=== PATIENT | male | born 1950 | race Caucasian/White ===

== ENCOUNTER → 2023-09-20 07:56 | Outpatient (REF) | payer MEDICARE, SELFPAY ==
[2023-09-20 09:45] LABS: Calcium 9.5 mg/dl (8.4-10.2); Iron 85 ug/dl (49-181); Vitamin D, 25-OH*** 36.9 ng/mL (30-80)
[2023-09-20 09:56] LABS: Percent Saturation 26 % (20-50); Total Iron Binding Capacity 319 ug/dl (261-462)
[2023-09-20 09:59] LABS: TSH Reflex To Free T4 0.04 uIU/ml (0.47-4.68)
[2023-09-23 10:39] LABS: Intact PTH 158.8 pg/ml (13.6-85.8)
== END ==
LOC: HWLAB 07:56
PROVIDERS: ATTENDING PHYSICIAN Specialist; FAMILY PHYSICIAN Family Medicine; REFERRING PHYSICIAN Internal Medicine
DX: N18.31 Chronic kidney disease, stage 3a (principal); E61.1 Iron deficiency; Z86.39 Personal history of other endocrine, nutritional and metabolic disease
CPT/HCPCS: 36415; 82306; 83540; 83550; 83970; 84439; 84443

== ENCOUNTER → 2023-09-26 09:31 | Outpatient (REF) | payer MEDICARE, SELFPAY | LOC: HWRAD 09:31 | PROVIDERS: ATTENDING PHYSICIAN Internal Medicine; FAMILY PHYSICIAN Family Medicine | DX: M25.512 Pain in left shoulder (principal) | CPT/HCPCS: 73030 ==

== ENCOUNTER → 2023-11-01 07:07 | Outpatient (REF) | payer MEDICARE, SELFPAY | LOC: HWRAD 07:07 | PROVIDERS: ATTENDING PHYSICIAN Specialist; FAMILY PHYSICIAN Family Medicine | DX: M25.512 Pain in left shoulder (principal) | CPT/HCPCS: 73200 ==

== ENCOUNTER → 2023-12-19 09:11 | Outpatient (REF) | payer MEDICARE, SELFPAY | LOC: RCS 09:11 | PROVIDERS: ATTENDING PHYSICIAN Internal Medicine Cardiovascular Disease; FAMILY PHYSICIAN Family Medicine | DX: I35.0 Nonrheumatic aortic (valve) stenosis (principal) | CPT/HCPCS: 93306 ==

== ENCOUNTER → 2024-01-19 08:19 | Outpatient (REF) | payer MEDICARE, SELFPAY ==
[2024-01-19 12:48] LABS: Urine Albumin Trace (Neg - Trace); Urine Bilirubin Negative (Negative); Urine Character Clear (Clear); Urine Color Straw; Urine Glucose 3+ (Negative); Urine Ketone Negative (Negative); Urine Leukocyte Negative (Negative); Urine Nitrite Negative (Negative); Urine Occult Blood Negative (Negative); Urine Specific Gravity 1.015 (<1.030); Urine Urobilinogen Negative (Neg - 1+)
[2024-01-19 13:35] LABS: AST (SGOT) 38 U/L (17-59); Albumin 4.4 g/dl (3.5-5.0); Blood Urea Nitrogen 33 mg/dl (9-20); Calcium 9.6 mg/dl (8.4-10.2); Carbon Dioxide 23 mmol/L (22-30); Glucose 123 mg/dl (70-99); Potassium 4.4 mmol/L (3.5-5.1); Total Bilirubin 0.6 mg/dl (0.2-1.3); Total Protein 7.7 g/dl (6.3-8.2); eGFR 52.74
[2024-01-19 13:41] LABS: C-Reactive Protein < 5.00 mg/L (0.0-10.00)
[2024-01-19 13:43] LABS: ALT (SGPT) 23 U/L (0-50); Alkaline Phosphatase 75 U/L (38-126); Chloride 104 mmol/L (98-107); Sodium 139 mmol/L (135-145)
[2024-01-19 13:49] LABS: Protein/creatinine Ratio 0.9; Urine Protein 55 mg/dl
[2024-01-19 14:12] LABS: TSH 0.21 uIU/ml (0.47-4.68)
[2024-01-19 14:15] LABS: Microalbumin, Random Urine 23.3 mg/dl (0.6-1.7)
[2024-01-19 14:24] LABS: Glycohemoglobin (HgbA1c) 7.3 % (4.0-5.6)
[2024-01-19 14:42] LABS: Erythrocyte Sed Rate 12 mm/hour (0-20)
[2024-01-22 00:06] LABS: Complement C3 88 mg/dl (88-165)
== END ==
LOC: HWLAB 08:19
PROVIDERS: ATTENDING PHYSICIAN Internal Medicine; FAMILY PHYSICIAN Family Medicine; REFERRING PHYSICIAN Specialist
DX: E11.69 Type 2 diabetes mellitus with other specified complication (principal); E03.9 Hypothyroidism, unspecified; M32.9 Systemic lupus erythematosus, unspecified; M35.00 Sjogren syndrome, unspecified; Z51.81 Encounter for therapeutic drug level monitoring; R97.20 Elevated prostate specific antigen [PSA]
CPT/HCPCS: 36415; 80053; 81003; 82043; 82570; 83036; 84153; 84156; 84443; 85652; 86140; 86160; 86225

== ENCOUNTER → 2024-03-07 08:24 | Outpatient (REF) | payer MEDICARE, SELFPAY ==
[2024-03-07 11:44] LABS: TSH Reflex To Free T4 0.48 uIU/ml (0.47-4.68)
== END ==
LOC: HWLAB 08:24
PROVIDERS: ATTENDING PHYSICIAN Specialist; FAMILY PHYSICIAN Family Medicine
DX: R79.89 Other specified abnormal findings of blood chemistry (principal)
CPT/HCPCS: 36415; 84443

== ENCOUNTER → 2024-03-19 13:22 | Outpatient (REF) | payer MEDICARE, SELFPAY | LOC: MRI 13:22 | PROVIDERS: ATTENDING PHYSICIAN Specialist; FAMILY PHYSICIAN Family Medicine | DX: R97.20 Elevated prostate specific antigen [PSA] (principal) | CPT/HCPCS: 72197; A9575 ==

== ENCOUNTER → 2024-04-24 08:27 | Outpatient (REF) | payer MEDICARE, SELFPAY ==
[2024-04-24 09:58] LABS: % Basophils 0.7 % (0-2); % Eosinophils 5.3 % (0-6); % Immature Granulocytes 0.3 % (0-0.5); % Lymphocytes 27.7 % (20.5-51.1); % Monocytes 14.5 % (1.7-9.3); % Neutrophils 51.5 % (42.2-75.2); Absolute Eosinophils 0.2 10^3/uL (0-0.7); Absolute Lymphocytes 0.8 10^3/uL (1.2-3.4); Absolute Monocytes 0.4 10^3/uL (0.1-0.6); Absolute Neutrophils 1.6 10^3/uL (1.4-6.5); Hematocrit 41.1 % (39.0-52.0); Hemoglobin 13.7 g/dL (13.0-18.0); Mean Corp Hgb Conc. 33.3 g/dL (33.0-37.0); Mean Corpuscular Hgb 29.6 pg (27.0-31.0); Mean Corpuscular Volume 88.8 fL (80.0-94.0); Mean Platelet Volume 9.3 fL (7.4-10.4); Nucleated Red Blood Cells % 0 % (-); Platelet Count 134 10^3/uL (130-400); Red Blood Cell Count 4.63 10^6/uL (4.70-6.10)
[2024-04-24 11:14] LABS: Urine Albumin 1+ (Neg - Trace); Urine Bilirubin Negative (Negative); Urine Character Clear (Clear); Urine Color Yellow; Urine Glucose 3+ (Negative); Urine Ketone Negative (Negative); Urine Leukocyte Negative (Negative); Urine Nitrite Negative (Negative); Urine Occult Blood 4+ (Negative); Urine Urobilinogen Negative (Neg - 1+)
[2024-04-24 11:25] LABS: Erythrocyte Sed Rate 15 mm/hour (0-20)
[2024-04-24 11:38] LABS: Urine Bacteria Few (Negative); Urine Hyaline Cast 0-2 /LPF (0-2); Urine Mucus Few; Urine Squamous Cell 0-2 /LPF (Few); Urine White Cell 0-2 /HPF (0-5)
[2024-04-24 12:15] LABS: Glycohemoglobin (HgbA1c) 7.1 % (4.0-5.6)
[2024-04-24 12:22] LABS: ALT (SGPT) 23 U/L (0-50); AST (SGOT) 35 U/L (17-59); Albumin 4.6 g/dl (3.5-5.0); Alkaline Phosphatase 76 U/L (38-126); Blood Urea Nitrogen 33 mg/dl (9-20); Calcium 9.5 mg/dl (8.4-10.2); Carbon Dioxide 24 mmol/L (22-30); Chloride 103 mmol/L (98-107); Glucose 114 mg/dl (70-99); HDL Cholesterol 51 mg/dl; LDL Cholesterol, Calculated 59 mg/dl; Potassium 4.8 mmol/L (3.5-5.1); Sodium 141 mmol/L (135-145); Total Bilirubin 0.5 mg/dl (0.2-1.3); Total Cholesterol 126 mg/dl (50-199); Total Protein 7.7 g/dl (6.3-8.2); Triglyceride 81 mg/dl (10-149); Very Low Density Lipoprotein 16 mg/dl (0-30); eGFR 48.55
[2024-04-24 12:57] LABS: C-Reactive Protein < 5.00 mg/L (0.0-10.00)
[2024-04-24 14:06] LABS: Protein/creatinine Ratio 0.6; Urine Protein 100 mg/dl
[2024-04-25 02:36] LABS: Complement C3 84 mg/dl (88-165)
[2024-04-26 01:49] LABS: ds-DNA Ab, IgG Reflex To Titer 15 IU (0-24)
== END ==
LOC: HWLAB 08:27
PROVIDERS: ATTENDING PHYSICIAN Internal Medicine; FAMILY PHYSICIAN Family Medicine
DX: M32.9 Systemic lupus erythematosus, unspecified (principal); M35.00 Sjogren syndrome, unspecified; E78.5 Hyperlipidemia, unspecified; E11.59 Type 2 diabetes mellitus with other circulatory complications
CPT/HCPCS: 36415; 80053; 80061; 81003; 81015; 82570; 83036; 84156; 85025; 85652; 86140; 86160; 86225

== ENCOUNTER → 2024-06-17 10:07 | Outpatient (REF) | payer MEDICARE, SELFPAY ==
[2024-06-17 12:15] LABS: ALT (SGPT) 25 U/L (0-50); AST (SGOT) 36 U/L (17-59); Albumin 4.2 g/dl (3.5-5.0); Alkaline Phosphatase 63 U/L (38-126); Blood Urea Nitrogen 36 mg/dl (9-20); Calcium 9.5 mg/dl (8.4-10.2); Carbon Dioxide 27 mmol/L (22-30); Chloride 100 mmol/L (98-107); Glucose 121 mg/dl (70-99); HDL Cholesterol 75 mg/dl; LDL Cholesterol, Calculated 92 mg/dl; Potassium 4.5 mmol/L (3.5-5.1); Sodium 138 mmol/L (135-145); Total Bilirubin 0.7 mg/dl (0.2-1.3); Total Cholesterol 181 mg/dl (50-199); Total Protein 7.5 g/dl (6.3-8.2); Triglyceride 72 mg/dl (10-149); Very Low Density Lipoprotein 14 mg/dl (0-30); eGFR 52.74
== END ==
LOC: HWLAB 10:07
PROVIDERS: ATTENDING PHYSICIAN Internal Medicine Cardiovascular Disease; FAMILY PHYSICIAN Family Medicine
DX: I25.10 Atherosclerotic heart disease of native coronary artery without angina pectoris (principal)
CPT/HCPCS: 36415; 80053; 80061

== ENCOUNTER → 2024-09-09 08:22 | Outpatient (REF) | payer MEDICARE, SELFPAY ==
[2024-09-09 10:20] LABS: ALT (SGPT) 18 U/L (0-50); AST (SGOT) 31 U/L (17-59); Albumin 3.9 g/dl (3.5-5.0); Alkaline Phosphatase 62 U/L (38-126); Blood Urea Nitrogen 31 mg/dl (9-20); Calcium 9.1 mg/dl (8.4-10.2); Carbon Dioxide 28 mmol/L (22-30); Chloride 100 mmol/L (98-107); Glucose 122 mg/dl (70-99); HDL Cholesterol 63 mg/dl; LDL Cholesterol, Calculated 61 mg/dl; Sodium 137 mmol/L (135-145); Total Bilirubin 0.4 mg/dl (0.2-1.3); Total Cholesterol 142 mg/dl (50-199); Triglyceride 94 mg/dl (10-149); Very Low Density Lipoprotein 18 mg/dl (0-30); eGFR 52.41
[2024-09-09 10:22] LABS: Urine Albumin 1+ (Neg - Trace); Urine Bilirubin Negative (Negative); Urine Character Clear (Clear); Urine Color Yellow; Urine Glucose 3+ (Negative); Urine Ketone Negative (Negative); Urine Leukocyte Negative (Negative); Urine Nitrite Negative (Negative); Urine Occult Blood Negative (Negative); Urine Specific Gravity 1.015 (<1.030); Urine Urobilinogen Negative (Neg - 1+)
[2024-09-09 10:24] LABS: C-Reactive Protein < 5.00 mg/L (0.0-10.00)
[2024-09-09 10:32] LABS: Urine Mucus Few; Urine Red Blood Cell 0-2 /HPF (0-2); Urine Squamous Cell 0-2 /LPF (Few); Urine White Cell 0-2 /HPF (0-5)
[2024-09-09 10:33] LABS: Erythrocyte Sed Rate 19 mm/hour (0-20)
[2024-09-09 10:46] LABS: % Eosinophils 11.7 % (0-6); % Immature Granulocytes 0.5 % (0-0.5); % Lymphocytes 10.7 % (20.5-51.1); % Monocytes 18.4 % (1.7-9.3); % Neutrophils 57.7 % (42.2-75.2); Absolute Eosinophils 0.2 10^3/uL (0-0.7); Absolute Lymphocytes 0.2 10^3/uL (1.2-3.4); Absolute Monocytes 0.4 10^3/uL (0.1-0.6); Absolute Neutrophils 1.2 10^3/uL (1.4-6.5); Hematocrit 37.9 % (39.0-52.0); Hemoglobin 12.2 g/dL (13.0-18.0); Mean Corp Hgb Conc. 32.2 g/dL (33.0-37.0); Mean Corpuscular Volume 90.2 fL (80.0-94.0); Mean Platelet Volume 8.4 fL (7.4-10.4); Nucleated Red Blood Cells % 0 % (-); Platelet Count 98 10^3/uL (130-400); Red Cell Dist. Width 13.4 % (11.5-14.5); White Blood Cell Count 2.1 10^3/uL (4.8-10.8)
[2024-09-09 10:54] LABS: TSH 0.42 uIU/ml (0.47-4.68)
[2024-09-09 11:01] LABS: Urine Protein 117 mg/dl
[2024-09-09 14:27] LABS: Microalbumin, Random Urine > 57.0 mg/dl (0.6-1.7)
[2024-09-09 18:42] LABS: Complement C3 102 mg/dl (88-165)
[2024-09-11 02:02] LABS: ds-DNA Ab, IgG Reflex To Titer 6 IU (0-24)
== END ==
LOC: HWLAB 08:22
PROVIDERS: ATTENDING PHYSICIAN Internal Medicine; FAMILY PHYSICIAN Family Medicine
DX: E03.9 Hypothyroidism, unspecified (principal); E11.69 Type 2 diabetes mellitus with other specified complication; E78.5 Hyperlipidemia, unspecified
CPT/HCPCS: 36415; 80053; 80061; 81003; 81015; 82043; 82570; 83036; 84156; 84443; 85025; 85652; 86140; 86160; 86225

== ENCOUNTER → 2024-09-24 11:02 | Outpatient (REF) | payer MEDICARE, SELFPAY | LOC: HWRAD 11:02 | PROVIDERS: ATTENDING PHYSICIAN Family Medicine; REFERRING PHYSICIAN Otolaryngology | DX: J32.9 Chronic sinusitis, unspecified (principal) | CPT/HCPCS: 70486 ==

== ENCOUNTER → 2024-10-07 09:02 | Outpatient (REF) | payer MEDICARE, SELFPAY ==
[2024-10-07 12:08] LABS: % Basophils 0.4 % (0-2); % Eosinophils 7.3 % (0-6); % Immature Granulocytes 0.4 % (0-0.5); % Lymphocytes 13.5 % (20.5-51.1); % Neutrophils 63.4 % (42.2-75.2); Absolute Eosinophils 0.2 10^3/uL (0-0.7); Absolute Lymphocytes 0.4 10^3/uL (1.2-3.4); Absolute Monocytes 0.4 10^3/uL (0.1-0.6); Absolute Neutrophils 1.7 10^3/uL (1.4-6.5); Hematocrit 36.7 % (39.0-52.0); Hemoglobin 12.2 g/dL (13.0-18.0); Mean Corp Hgb Conc. 33.2 g/dL (33.0-37.0); Mean Corpuscular Hgb 30.1 pg (27.0-31.0); Mean Corpuscular Volume 90.6 fL (80.0-94.0); Nucleated Red Blood Cells % 0 % (-); Platelet Count 128 10^3/uL (130-400); Red Blood Cell Count 4.05 10^6/uL (4.70-6.10); Red Cell Dist. Width 14.1 % (11.5-14.5); White Blood Cell Count 2.7 10^3/uL (4.8-10.8)
[2024-10-07 12:42] LABS: ALT (SGPT) 32 U/L (0-50); AST (SGOT) 35 U/L (17-59); Albumin 4.1 g/dl (3.5-5.0); Alkaline Phosphatase 67 U/L (38-126); Blood Urea Nitrogen 35 mg/dl (9-20); Calcium 9.5 mg/dl (8.4-10.2); Carbon Dioxide 30 mmol/L (22-30); Chloride 102 mmol/L (98-107); Glucose 142 mg/dl (70-99); Potassium 4.3 mmol/L (3.5-5.1); Sodium 138 mmol/L (135-145); Total Bilirubin 0.5 mg/dl (0.2-1.3); Total Protein 7.3 g/dl (6.3-8.2); eGFR 52.41
== END ==
LOC: HWLAB 09:02
PROVIDERS: ATTENDING PHYSICIAN Internal Medicine; FAMILY PHYSICIAN Family Medicine
DX: M32.9 Systemic lupus erythematosus, unspecified (principal)
CPT/HCPCS: 36415; 80053; 85025

== ENCOUNTER 2024-10-30 12:31 | Emergency (ER) | payer MEDICARE, SELFPAY ==
[2024-10-30 12:33] VITALS: BMI 22.2
[2024-10-30 12:34] VITALS: BP 155/69
[2024-10-30 12:55] LABS: % Basophils 0.2 % (0-2); % Eosinophils 12.4 % (0-6); % Immature Granulocytes 0.5 % (0-0.5); % Lymphocytes 4.6 % (20.5-51.1); % Monocytes 6.5 % (1.7-9.3); % Neutrophils 75.8 % (42.2-75.2); Absolute Eosinophils 0.8 10^3/uL (0-0.7); Absolute Lymphocytes 0.3 10^3/uL (1.2-3.4); Absolute Monocytes 0.4 10^3/uL (0.1-0.6); Absolute Neutrophils 4.8 10^3/uL (1.4-6.5); Hematocrit 34.3 % (39.0-52.0); Hemoglobin 11.5 g/dL (13.0-18.0); Mean Corp Hgb Conc. 33.5 g/dL (33.0-37.0); Mean Corpuscular Hgb 30.5 pg (27.0-31.0); Nucleated Red Blood Cells % 0 % (-); Platelet Count 98 10^3/uL (130-400); Red Blood Cell Count 3.77 10^6/uL (4.70-6.10); Red Cell Dist. Width 13.7 % (11.5-14.5); White Blood Cell Count 6.3 10^3/uL (4.8-10.8)
[2024-10-30 13:00] VITALS: BP 145/69
[2024-10-30 13:00] LABS: ALT (SGPT) 36 U/L (0-50); AST (SGOT) 35 U/L (17-59); Alkaline Phosphatase 76 U/L (38-126); Blood Urea Nitrogen 39 mg/dl (9-20); Calcium 9.1 mg/dl (8.4-10.2); Carbon Dioxide 26 mmol/L (22-30); Chloride 102 mmol/L (98-107); Estimated Creatinine Clearance 47 ml/min; Glucose 151 mg/dl (70-99); Potassium 4.4 mmol/L (3.5-5.1); Sodium 137 mmol/L (135-145); Total Bilirubin 0.7 mg/dl (0.2-1.3); Total Protein 6.9 g/dl (6.3-8.2); eGFR 44.65
[2024-10-30 13:10] LABS: Troponin I 0.015 ng/ml
--- NOTE | 2024-10-30 13:10 | ED.GENMED ---
History of Present Illness
General
Chief Complaint: Heart Rate Problem
Source: patient, records and spouse
Exam Limitations: none
Time Seen by Provider: 10/30/24 12:40
Nursing documentation reviewed up to this point in time: agreed with
History of Present Illness
History of Present Illness:
74-year-old male with a past medical history of hypertension, hyperlipidemia, CAD status post stents, CABG, CHF, cardiomyopathy, pacemaker, aortic stenosis, prostate cancer status post radiation therapy (finished about 6 weeks ago) and currently on
Lupron. He presents to the emergency room with his today for evaluation of lightheadedness on exertion. Patient reports symptoms have been ongoing for about a month but generally mild until the past few days. He says that today he had severe
symptoms even with very light exertion�he says that he was washing some close in the sink and felt so lightheaded that he was about to pass out. He says that he had 3 such episodes today. He had some associated mild hypotension. He says he had a
salty breakfast and some fluids but this did not seem to help and so he called EMS to bring him to the hospital to be evaluated. He has not had any chest pain. He says he has some mild shortness of breath with his symptoms. Has not noticed any
swelling or pain in the legs. Has not had any nausea or vomiting; has generally had normal bowel movements over the past month but last night did have some loose stools. He denies any abdominal or flank pain. He denies any headache. He denies
any other complaints. He has been following with Dr. Aden for cardiology care; he is supposed to see Dr. Frausto since Dr. Aden's [facility] living but has not yet seen him in the office.
Past History
Past History
ED Past Medical History: CAD, CHF, HTN, Hypercholesterolemia, NIDDM, Other (Pernicious anemia) and Other (DVT/PE)
ED Past Surgical History: Cardiac (CABG) and Other (Recent three-level lumbar laminectomy)
Social History
Tobacco: Non-smoker
Alcohol: Occasional
Drug: None
Personal:
Living: with family
Employment: Retired
Family History
Family History: Other
Review of Systems
Review of Systems
All Other Systems: ROS reviewed and negative except as documented in HPI and ROS
Constitutional: Denies fever
Respiratory: Reports trouble breathing; Denies cough
Cardiac: Reports syncope (Presyncope); Denies chest pain, diaphoresis or palpitations
ABD/GI: Reports diarrhea (X 1 episode last night); Denies abdominal pain, nausea or vomiting
: Denies flank pain
Musculoskeletal: Denies neck pain or back pain
Neurological: Reports dizzy; Denies headache
Phy Exam
Physical Exam
Physical Exam:
General: Awake, alert, oriented x3; no acute distress
Head: Normocephalic, atraumatic
Eyes: Conjunctiva normal, sclera anicteric
Throat: Airway intact, handling secretions
Neck: Trachea midline, supple without meningismus
Lungs: Clear to auscultation bilaterally, no wheezing, rales, rhonchi
Heart: Regular rate and rhythm, loud systolic murmur
Abd: Soft, non distended, nontender with no masses
Neuro: No gross deficit
Skin: no rash
Extremities: No edema in extremities, equal pulses in all extremities
Scores
Heart Failure Risk
Heart Failure Risk Score: Not Applicable
Heart Score for Chest Pain Patients
STEMI patient?: Not applicable
Withdrawal Assessment of Alcohol
Withdrawal Assessment Completed?: Not applicable
Course
Orders/Labs/Results
Orders:
Orders
10/30/24 12:32
Electrocardiogram (*1) Urgent
Reason for Study: Syncope
10/30/24 12:33
EKG- Treatment ONCE
10/30/24 12:41
CMP [Comprehensive Metabolic Panel] Urgent
Complete Blood Count/With Diff Urgent
Troponin I Urgent
10/30/24 12:42
Interrogate Pacemaker- Treatment ONCE
10/30/24 13:10
CARDIOLOGY CONSULT Urgent
Consulting Provider: Rosalinda Wong
Was physician already notified: Yes
10/30/24 14:54
Echo 2D MMode Color/Doppler Routine
Reason for Study: , light-headedness
Orthostatic Vital Signs As Directed
Orthostatic VS Frequency: Now
Abnormal Lab Results
10/30/24
12:41
RBC 3.77 L 10^6/uL
(4.70-6.10)
Hgb 11.5 L g/dL
(13.0-18.0)
Hct 34.3 L %
(39.0-52.0)
Plt Count 98 L 10^3/uL
(130-400)
Absolute Lymphs (auto) 0.3 L 10^3/uL
(1.2-3.4)
Absolute Eos (auto) 0.8 H 10^3/uL
(0-0.7)
Neutrophils % 75.8 H %
(42.2-75.2)
Lymphocytes % 4.6 L %
(20.5-51.1)
Eosinophils % 12.4 H %
(0-6)
BUN 39 H mg/dl
(9-20)
Creatinine 1.6 H mg/dL
(0.7-1.3)
Glucose 151 H mg/dl
(70-99)
10/30/24 12:41
10/30/24 12:41
Vital Signs
Initial and Last Documented VS:
Initial Vital Signs
Pulse Resp
77 27
10/30/24 12:33 10/30/24 12:33
Last Documented Vital Signs
Temp Pulse Resp BP Pulse Ox
37.2 C 60 21 109/41 97
10/30/24 12:39 10/30/24 16:30 10/30/24 16:30 10/30/24 16:00 10/30/24 16:30
MDM/Problems Addressed
Differential Diagnosis Includes:
Anemia, valvular disease, dysrhythmia, dehydration, vasovagal, orthostasis
MDM/Problems Addressed:
74-year-old male presents for evaluation of lightheadedness with exertion over the past month worse over the past few days especially today. He did have some associated hypotension today. He feels well here in the while resting in bed. His blood
pressure is actually mildly elevated here in the ER. Rest of his vitals are normal. Physical exam as above�notably has loud systolic murmur known aortic stenosis. He had lab work sent in triage including CBC which shows marginal anemia 11.5
unlikely acutely of clinical significance. His CMP shows essentially stable CKD with creatinine of 1.6. EKG shows paced rhythm. Will interrogate device. Case discussed with cardiology for assessment with concern for worsening valvular disease.
Discussed with cardiology�echocardiogram reviewed and appears to show worsening aortic stenosis. Likely this is the cause of his symptoms. Cardiology to discontinue Entresto. Stable for discharge and they will follow-up with him in an expedited
fashion for outpatient cath. Patient comfortable with this. All questions answered.
Chronic conditions affecting care:
Aortic stenosis, CAD/CHF
*Pulse Oximetry
Patient hypoxic: no
*EKG
Interpreted by ED Provider?: Yes
Heart Rate: 65
Rate: normal
Rhythm: av sequential
*Critical Care Note
Total Time (30-74mins, 75-104mins- exclusive of procedures): Not Applicable
Data Reviewed
Review of Other/Old Records Reveals: Labs and Records
Source: patient, records, spouse and ambulance crew
Patient Management
Discussion with other providers: Sat Act Instructor (Discussed with cardiology)
ED Attending Note
-
Portions of this chart may have been created with voice recognition software.� Occasional wrong word or��sound alike� substitutions may have occurred due to the inherent limitations of voice recognition software.
Discharge Plan
Departure
Patient Disposition: Home (Routine Discharge)
Date of Disposition: 10/30/24
Time of Disposition: 17:19
Patient with high blood pressure during this ER visit?: Yes
Discharge Problem:
Aortic stenosis, Lightheadedness
Instructions: Aortic Stenosis, Adult (DC)
Prescriptions:
No Action
atorvastatin 40 MG tablet
40 mg PO QPM
cyanocobalamin (vitamin B-12) 1,000 MCG/1 ML solution
1,000 mcg IM SA
aspirin 81 MG tablet,delayed release (DR/EC)
81 mg PO QPM
levothyroxine 200 MCG tablet
200 mcg PO DAILY
Janumet 1 EACH tablet
1 tab PO BID@0800,1700
ascorbic acid (vitamin C) [Vitamin C] 500 MG tablet
1,500 mg PO DAILY
trazodone 50 MG tablet
100 mg PO HS
azelastine-fluticasone 23 GM spray,non-aerosol
1 spray intranasal BID
terazosin 5 MG capsule
10 mg PO NOON Qty: 0 0RF
prednisone 5 mg Tablet
5 mg PO DAILY
hydroxychloroquine 200 mg Tablet
200 mg PO BID
carvedilol 25 mg Tablet
25 mg PO BID
hydralazine 50 MG tablet
100 mg PO TID
folic acid 1 mg Tablet
3 mg PO DAILY
oxycodone 10 mg Tablet
10 mg PO Q8H PRN (Reason: pain)
furosemide [Lasix] 40 mg tablet
40 mg PO DAILY Qty: 90 5RF
Referrals:
Edu Bentley DO [Family Provider] -
Ed Purcell MD [Active] - Call in 1-3 days for appt (Follow up with cardiology as instructed for outpatient follow up of your valve issue.)
Activity Restrictions/Additional Instructions:
Thank you for visiting the Emergency Department at [facility].
1. Please schedule a follow up appointment as directed. Call first thing tomorrow morning to make an appointment.
2. If indicated, please take your medications as instructed and indicated on discharge paperwork.
3. If any of your symptoms do not improve, or persist, or become more severe within 6-12 hours, please return to the emergency department for further care.
4. Please return to the emergency department if you develop a headache, neck pain/stiffness, fever greater than 100.4F, chest pain, shortness of breath, persistent nausea, vomiting, slurred speech, difficulty walking, numbness/tingling, weakness,
signs of infection or any other symptoms that are worrisome to you.
Please call [phone] if you have any questions.
Interventions
Interventions:
*Risk Screen - Suicide Last Done: 10/30/24 12:33
*General Assessment Last Done: 10/30/24 12:33
*Neglect/Abuse Screening Last Done: 10/30/24 12:33
*ED COVID-19 Vaccine History Last Done: 10/30/24 12:33
ED- Cardiac Assessment Last Done: 10/30/24 13:03
ED- Pulmonary Assessment Last Done: 10/30/24 13:03
Discharge Date and Time
Print Language: CITIZEN OF [place]
--- NOTE | 2024-10-30 13:31 | CON.CAR ---
Addendum entered and electronically signed by Rosalinda Wong MD 10/30/24 15:43:
I saw and examined the patient.
The ANGLE SHEAR OPERATOR's note was reviewed and I agree with the note.
Comment: 74 y/o male with ICM EF 40%, complex CAD with hx CABG and stenting, Sjogren's, hypertension, dyslipidemia, symptomatic bradycardia s/p PPM, moderate , prostate cancer s/ radiation who is here for evaluation of light-headedness. He has
been undergoing radiation and Lupron for newly diagnosed prostate cancer with a Dalton score of 9 at 10 who for the last month or so has been having episodes of lightheadedness. It was most severe today, he was lightheaded but still got into a hot
shower, coming out of the shower this worsened. He checked his blood pressure it was systolic in the 80s. He sat down, began to feel a bit better ate breakfast blood pressure jasper to 90s. However he then began to have ongoing symptoms and sought
emergent care. No true syncope. He relates to me that over the last month his symptoms mostly occur while he is walking around and exerting himself. In the past GDMT has been limited by low blood pressure. On exam, he is well-appearing in no
apparent distress. Lungs were clear to auscultation bilaterally when breathing through his nose, initially there were transmitted upper airway sounds, he has a regular rate and rhythm there is a 3 out of 6 crescendo decrescendo murmur in the right
upper sternal border rating to the carotids and apex. I do think there is a A2 closing sounds still. Abdomen is soft nontender extremities were warm well-perfused. EKG showed AV pacing with a PVC. Laboratory show mild anemia that seems chronic,
creatinine of 1.6 baseline appears to be 1.4-1.6. Troponin is 0.015. It was my pleasure to see Mr. García for his episode of lightheadedness. Most concerning is that the symptom is exertional time. We did interrogate his device and no arrhythmias
were identified. He does have a history of moderate aortic stenosis on an echocardiogram in November 2023. At that time mean gradient was 22 mmHg JOI 1.2 cm�. It is possible this has rapidly progressed to severe aortic stenosis. This was likely
worsened by vasodilation after a hot shower. He is also on afterload reduction with Entresto. Additionally, EF is 40% so maybe we are underestimating his gradients. Currently he is feeling much better without complaint. I will arrange for an
urgent echocardiogram. If AAS is in fact severe, would feel comfortable sending him home off Entresto, and arranging for expedited workup for possible valve replacement with an outpatient catheterization. Otherwise, could observe him overnight and
monitor blood pressure further. He is not having any chest pain. He has no arrhythmia on his device.
We did discuss about admitting him either way, he prefers to go home if able. If echocardiogram shows severe , will discharge home off Entresto with close follow-up and instructions to avoid strenuous activities and hot showers.
Original Note:
Consultation
Consultation Request
Date/Time Consultation Requested: 10/30/24 1310
Date/Time Consultation Performed: 10/30/24 1330
Requesting Provider: Dr. Mejia
Performing Provider: Maitlda GALLO for Dr. Wong
Reason for Consultation: light-headedness, aortic stenosis
Medical History
-
Chief Complaint: light-headedness
History of Present Illness:
74 y/o male with ICM EF 40%, complex CAD with hx CABG and stenting, Sjogren's, hypertension, dyslipidemia, symptomatic bradycardia s/p PPM, moderate , prostate cancer s/ radiation who is here for evaluation of light-headedness. Briefly, over the
past month and a half, he has noted occasional light-headedness and SOB with exertional activities such as stairs. It would go away with rest. He has also reported weakness, fatigue, and foggy head (brain not as quick). Over the past 4 days his
light-headedness and SOB has worsened. This AM it was worse- he took a hot shower and was light-headed. Afterward, he thought it might be a little better, but then was making breakfast and noted it again. He sat down and had salt, coffee, OJ, and
seltzer and still did not feel improved. He actually thought he might 'black out', but did not. BP at home was as low as 80/42. He did feel better laying. BP is not low in ER and actually mildly elevated. He looks well in ER. Recent sinus infection
improved s/p ABX.
Past Medical History
Past Medical History: Arrhythmias, CAD, Cancer, HTN, Hypercholesterolemia and Valvular Disease
Social History
Personal:
Family History
Family History: Reviewed & Not Pertinent
Allergies / Home Medications
Allergy/AdvReac Type Severity Reaction Status Date / Time
candesartan Allergy Rash Verified 05/14/23 16:12
Cardiac medicines:
-Entresto 24/26 mg PO BID
-aspirin 81 mg PO daily
-atorvastatin 40 mg PO daily
-Farxiga 10 mg PO daily
Review of Systems
-
History Source: Patient
All other systems: Negative unless noted
Respiratory: Trouble Breathing
Neurological: Other (light-headed)
Physical Exam
Vital Signs
Temp Pulse Resp BP
98.9 F 70 17 155/69
10/30/24 12:39 10/30/24 12:34 10/30/24 12:34 10/30/24 12:34
Lab Results
10/30/24 12:41
10/30/24 12:41
Troponin I 0.015 ng/ml 10/30/24 12:41
Physical Exam
General: Well Developed, Well Nourished and No Apparent Distress
HEENT: Normocephalic and Anicteric
Respiratory: Clear and Non Labored Respirations
Cardiac: Regular Rhythm and Murmur (III/ systolic)
Musculoskeletal: No Edema
Skin: Warm and Dry
Neuro: AO x 3
Psych: Calm
Impression / Plan
-
Light-headedness/SOB:
-update echo
-check orthos- patient reported hypotension at home
-pacemaker check in ER unremarkable
CAD with hx CABG and stenting:
-denies CP
-continue ASA and statin
ICM EF 40%:
-on Entresto and Farxiga, GDMT limited by BP's per OP notes
-does not appear volume overloaded
Aortic stenosis:
-moderate by echo
-update
DM:
-recently started insulin
Prostate cancer:
-s/p radiation
-gets lupron last time May -has felt cold/chills since this started
Data Reviewed
-
EKG: Tracing Personally Visualized and interpreted (AV paced, PVC)
Medical Tests (Nuc Med, Echo etc): Report Reviewed by me (Echo 12/19/23: Mildly reduced left ventricular systolic function. Global hypokinesis. Estimated left ventricular ejection fraction is 40%. Severe LAE. Moderate aortic stenosis (mean 22 mmHg,
JOI 1.2 cmsq). No significant change since the prior study of 12/07/2022. )
Labs: Labs Reviewed by me
[2024-10-30 14:00] VITALS: BP 159/67
[2024-10-30 15:00] VITALS: BP 141/70
[2024-10-30 16:00] VITALS: BP 109/41
== END 2024-10-30 18:00 | disposition home or self-care (01) ==
LOC: EMR 12:31
PROVIDERS: Emergency Medicine; CONSULT PHYSICIAN Internal Medicine Cardiovascular Disease; EMERGENCY PHYSICIAN Emergency Medicine; FAMILY PHYSICIAN Family Medicine
DX: I35.0 Nonrheumatic aortic (valve) stenosis (principal); R42 Dizziness and giddiness; I25.10 Atherosclerotic heart disease of native coronary artery without angina pectoris; I13.0 Hypertensive heart and chronic kidney disease with heart failure and stage 1 through stage 4 chronic kidney disease, or unspecified chronic kidney disease; I50.9 Heart failure, unspecified; E11.22 Type 2 diabetes mellitus with diabetic chronic kidney disease; N18.9 Chronic kidney disease, unspecified; E78.00 Pure hypercholesterolemia, unspecified; M35.00 Sjogren syndrome, unspecified; I42.9 Cardiomyopathy, unspecified; C61 Malignant neoplasm of prostate; Z86.718 Personal history of other venous thrombosis and embolism; Z95.0 Presence of cardiac pacemaker; Z95.1 Presence of aortocoronary bypass graft; Z95.5 Presence of coronary angioplasty implant and graft; Z92.3 Personal history of irradiation; Z79.899 Other long term (current) drug therapy
CPT/HCPCS: 99284; 80053; 84484; 85025; 93005; 93306

== ENCOUNTER → 2024-11-04 09:20 | Outpatient (REF) | payer MEDICARE, SELFPAY ==
[2024-11-04 12:06] LABS: PSA, Total - Diagnostic < 0.06 ng/ml (0.0-4.0)
== END ==
LOC: HWLAB 09:20
PROVIDERS: ATTENDING PHYSICIAN Radiology Radiation Oncology; FAMILY PHYSICIAN Family Medicine
DX: C61 Malignant neoplasm of prostate (principal)
CPT/HCPCS: 36415; 84153

== ENCOUNTER 2024-11-07 09:33 | Day surgery (SDC) | payer MEDICARE, SELFPAY ==
[2024-11-07] VITALS (8 sets, daily range): BP systolic 178–194; BP diastolic 74–86; BMI 21.2
[2024-11-07] MEDS: LOW STRENGTH ASPIRIN 81 MG PO (10:14)
[2024-11-07 10:17] LABS: Glucose - Point of Care 108 mg/dl (70-99)
[2024-11-07] MEDS: NSS 200 ML IV (10:19)
[2024-11-07] MEDS: NSS 1000 IV (15:20)
[2024-11-07 16:05] LABS: Glucose - Point of Care 104 mg/dl (70-99)
--- NOTE | 2024-11-07 16:32 | ITS.CL.PN ---
[facility] [facility] - Procedure Note
Procedure
Procedure Note:
CARDIAC CATHETERIZATION REPORT
Date of Procedure: 11/07/2024
Referring: Dr. Ranjith Aden MD
Indication: severe aortic stenosis
PROCEDURE(S)
1. right heart catheterization
2. left heart catheterization
3. coronary angiography
4. bypass graft angiography
ACCESS
1. 6F right common femoral artery (closure: Perclose)
2. 6F right femoral vein (closure: manual hemostasis)
CATHETERS
1. 5F [place]
2. 6F JR4
3. 6F JL3.5
MODERATE SEDATION: 45 minutes of moderate sedation was utilized. An independent medical imaging technologist was present to assist with and help manage the patient's level of consciousness and physiologic status.
ULTRASOUND GUIDED VASCULAR ACCESS (right femoral artery): Ultrasound was utilized for vascular access. The vessel was visualized under ultrasound and noted to be patent. An image of the vessel was stored permanently in the patient's medical record.
Under direct ultrasound guidance, vascular access was obtained using a modified Seldinger technique and a 6 Sinhala sheath was placed.
ULTRASOUND GUIDED VASCULAR ACCESS (right femoral vein): Ultrasound was utilized for vascular access. The vessel was visualized under ultrasound and noted to be patent. An image of the vessel was stored permanently in the patient's medical record.
Under direct ultrasound guidance, vascular access was obtained using a modified Seldinger technique and a 6 Sinhala sheath was placed.
HEMODYNAMIC DATA
LV 192/13 (EDP 25) mmHg
AO 175/75 (mean 114) mmHg
RA 9 mmHg
RV 45/4 (EDP 13) mmHg
PA 44/17 (mean 28) mmHg
PCWP 16 mmHg
SaO2 93.7%
SvO2 65.1%
Hb 11.2 g/dL
CO/CI 5.98/2.87 L/min/m2
SVR 1137 dsc*-5
PVR 2.0 Wood units
Mean gradient: 18.4 mmHg, JOI 1.59 cm2, HR 60 (SVI 47.8)
CORONARY ANGIOGRAPHY
Dominance: right
LM: large with mild disease
LAD: large vessel giving rise to a moderate caliber D1, small D2, and wrapping around the apex. There is ISR and diffuse moderate disease in the proximal vessel. There is competitive flow seen in the D1 and mid LAD.
LCx: large vessel giving rise to a proximally occluded OM1 (fed via the SVG), a large OM2, and large OM3. There is a stent in the proximal vessel with mild ISR. There is a 40% stenosis between OM1 and OM2 and otherwise mild disease.
RCA: proximal SECURITY ASSESSOR
BYPASS GRAFT ANGIOGRAPHY
RODRIGUEZ-LAD: patent and supples the LAD and backfills a small diagonal branch
[id number]-[id number]: patent without disease
RADIATION: dose 493 mGy; DAP 41.8 Gy*cm2; fluoroscopy time 17.5 min
CONCLUSIONS
1. coronary artery disease as described with patent bypass grafts and otherwise unchanged anatomy compared to prior cath in 2022
2. mild-moderately elevated biventricular filling pressures and normal cardiac index
3. systemic hypertension
4. moderate aortic stenosis with mean gradient 18 mmHg and JOI 1.59 cm2. On careful review of recent echo, LVOT diameter appears to be underestimated leading to significant underestimation of JOI. Visually, the valve appears to open in a way more
consistent with moderate aortic stenosis.
RECOMMENDATIONS
1. continue q12 month echocardiogram and q6 month office visits to monitor symptoms
2. medical management of HFrEF and mixed ICM/NICM, starting with reintroduction of Entresto, followed by outpatient initiation of betablocker
Copy to: Dr. Edu Bentley DO (PCP)
Signed: Ed Purcell MD, PhD
== END 2024-11-07 18:00 | disposition home or self-care (01) ==
LOC: CATH 09:33
PROVIDERS: ATTENDING PHYSICIAN Student in an Organized Health Care Education/Training Program; FAMILY PHYSICIAN Family Medicine
DX: I35.0 Nonrheumatic aortic (valve) stenosis (principal); I25.10 Atherosclerotic heart disease of native coronary artery without angina pectoris; I11.0 Hypertensive heart disease with heart failure; I50.22 Chronic systolic (congestive) heart failure; Z95.1 Presence of aortocoronary bypass graft; M35.00 Sjogren syndrome, unspecified; Z95.0 Presence of cardiac pacemaker; I25.82 Chronic total occlusion of coronary artery
CPT/HCPCS: 99152; 99153; 76937; 82962; 93461; C1760; C1769; C1894; Q9967

== ENCOUNTER → 2024-12-23 08:35 | Outpatient (REF) | payer MEDICARE, SELFPAY ==
[2024-12-23 10:38] LABS: ALT (SGPT) 29 U/L (0-50); AST (SGOT) 36 U/L (17-59); Albumin 3.9 g/dl (3.5-5.0); Alkaline Phosphatase 52 U/L (38-126); Blood Urea Nitrogen 30 mg/dl (9-20); Calcium 9.4 mg/dl (8.4-10.2); Carbon Dioxide 28 mmol/L (22-30); Chloride 106 mmol/L (98-107); Glucose 106 mg/dl (70-99); HDL Cholesterol 53 mg/dl; LDL Cholesterol, Calculated 67 mg/dl; Potassium 4.3 mmol/L (3.5-5.1); Sodium 143 mmol/L (135-145); Total Bilirubin 0.4 mg/dl (0.2-1.3); Total Cholesterol 132 mg/dl (50-199); Total Protein 7.2 g/dl (6.3-8.2); Triglyceride 63 mg/dl (10-149); Very Low Density Lipoprotein 12 mg/dl (0-30); eGFR 48.25
== END ==
LOC: HWLAB 08:35
PROVIDERS: ATTENDING PHYSICIAN Internal Medicine Cardiovascular Disease; FAMILY PHYSICIAN Family Medicine; REFERRING PHYSICIAN Student in an Organized Health Care Education/Training Program
DX: I25.10 Atherosclerotic heart disease of native coronary artery without angina pectoris (principal)
CPT/HCPCS: 36415; 80053; 80061

== ENCOUNTER → 2025-01-09 09:19 | Outpatient (REF) | payer MEDICARE, SELFPAY ==
[2025-01-09 12:24] LABS: % Basophils 0.5 % (0-2); % Eosinophils 5.6 % (0-6); % Immature Granulocytes 0.3 % (0-0.5); % Monocytes 13.5 % (1.7-9.3); % Neutrophils 71.1 % (42.2-75.2); Absolute Eosinophils 0.2 10^3/uL (0-0.7); Absolute Lymphocytes 0.3 10^3/uL (1.2-3.4); Absolute Monocytes 0.5 10^3/uL (0.1-0.6); Absolute Neutrophils 2.7 10^3/uL (1.4-6.5); Hematocrit 37.7 % (39.0-52.0); Hemoglobin 12.4 g/dL (13.0-18.0); Mean Corp Hgb Conc. 32.9 g/dL (33.0-37.0); Mean Corpuscular Hgb 29.6 pg (27.0-31.0); Mean Platelet Volume 9.8 fL (7.4-10.4); Nucleated Red Blood Cells % 0 % (-); Platelet Count 126 10^3/uL (130-400); Red Blood Cell Count 4.19 10^6/uL (4.70-6.10); White Blood Cell Count 3.8 10^3/uL (4.8-10.8)
[2025-01-09 12:33] LABS: ALT (SGPT) 23 U/L (0-50); AST (SGOT) 33 U/L (17-59); Albumin 4.3 g/dl (3.5-5.0); Alkaline Phosphatase 58 U/L (38-126); Blood Urea Nitrogen 39 mg/dl (9-20); Calcium 9.7 mg/dl (8.4-10.2); Carbon Dioxide 32 mmol/L (22-30); Chloride 104 mmol/L (98-107); Glucose 118 mg/dl (70-99); Potassium 4.3 mmol/L (3.5-5.1); Sodium 140 mmol/L (135-145); Total Bilirubin 0.4 mg/dl (0.2-1.3); Total Protein 8.1 g/dl (6.3-8.2); eGFR 52.41
== END ==
LOC: HWLAB 09:19
PROVIDERS: ATTENDING PHYSICIAN Internal Medicine; FAMILY PHYSICIAN Family Medicine
DX: M32.9 Systemic lupus erythematosus, unspecified (principal)
CPT/HCPCS: 36415; 80053; 85025

== ENCOUNTER → 2025-02-28 08:36 | Outpatient (REF) | payer MEDICARE, SELFPAY ==
[2025-02-28 11:14] LABS: Microalb - Urine Creatinine 155.100 mg/dl
[2025-02-28 11:26] LABS: Magnesium 1.8 mg/dl (1.6-2.3)
[2025-02-28 11:43] LABS: Microalbumin, Random Urine > 57.0 mg/dl (0.6-1.7)
[2025-02-28 11:52] LABS: TSH 1.39 uIU/ml (0.47-4.68)
[2025-02-28 12:09] LABS: Glycohemoglobin (HgbA1c) 7.3 % (4.0-5.6)
== END ==
LOC: HWLAB 08:36
PROVIDERS: ATTENDING PHYSICIAN Family Medicine
DX: E11.69 Type 2 diabetes mellitus with other specified complication (principal); E78.5 Hyperlipidemia, unspecified; E11.59 Type 2 diabetes mellitus with other circulatory complications; J32.9 Chronic sinusitis, unspecified; R25.2 Cramp and spasm
CPT/HCPCS: 36415; 82043; 82570; 82784; 83036; 83735; 84443

== ENCOUNTER → 2025-04-10 09:40 | Outpatient (REF) | payer MEDICARE, SELFPAY ==
[2025-04-11 22:48] LABS: % Natural Killer Cells 36 % (5-28); CD19 % of Cells (B-cells) 13 % (5-21); CD19 Absolute Count 51 cells/uL (74-510); CD3 % of Cells (Total T-cells) 48 % (62-89); CD3 Absolute Count 194 cells/uL (660-2200); CD4 % of Cells Analyzed 33 % (35-68); CD4 Absolute Count 133 cells/uL (490-1600); CD8 % of Cells Analyzed 13 % (10-46)
[2025-04-12 02:53] LABS: Free Kappa Light Chains,Quant 83.45 mg/L (3.30-19.40); Free Lambda Light Chains,Quant 43.69 mg/L (5.71-26.30); Kappa/Lambda Fr Light Ratio 1.91 (0.26-1.65)
[2025-04-13 02:22] LABS: 24 Hour Urine Total Volume Random mL; Urine Collection Length Random hr
[2025-04-13 02:28] LABS: Diptheria Antibody, IgG 0.2 IU/mL; Tetanus Antibody, IgG 2.6 IU/mL
== END ==
LOC: HWLAB 09:40
PROVIDERS: ATTENDING PHYSICIAN Internal Medicine; FAMILY PHYSICIAN Family Medicine
DX: J32.9 Chronic sinusitis, unspecified (principal); D80.8 Other immunodeficiencies with predominantly antibody defects
CPT/HCPCS: 36415; 83520; 83521; 84155; 84156; 84165; 86317; 86335; 86355; 86357; 86359; 86360

== ENCOUNTER → 2025-05-09 10:10 | Outpatient (REF) | payer MEDICARE, SELFPAY ==
[2025-05-09 13:36] LABS: PSA, Total - Diagnostic < 0.06 ng/ml (0.0-4.0)
== END ==
LOC: HWLAB 10:10
PROVIDERS: ATTENDING PHYSICIAN Family Medicine Geriatric Medicine; FAMILY PHYSICIAN Family Medicine
DX: C61 Malignant neoplasm of prostate (principal)
CPT/HCPCS: 36415; 84153

== ENCOUNTER → 2025-05-29 08:38 | Outpatient (REF) | payer MEDICARE, SELFPAY ==
[2025-05-29 12:41] LABS: Hematocrit 35.5 % (39.0-52.0); Hemoglobin 11.3 g/dL (13.0-18.0); Mean Corp Hgb Conc. 31.8 g/dL (33.0-37.0); Mean Corpuscular Volume 88.8 fL (80.0-94.0); Nucleated Red Blood Cells % 0 % (-); Platelet Count 135 10^3/uL (130-400); Red Cell Dist. Width 13.4 % (11.5-14.5)
[2025-05-29 12:42] LABS: ALT (SGPT) 30 U/L (0-50); AST (SGOT) 35 U/L (17-59); Albumin 4.0 g/dl (3.5-5.0); Alkaline Phosphatase 72 U/L (38-126); Blood Urea Nitrogen 28 mg/dl (9-20); Calcium 9.2 mg/dl (8.4-10.2); Carbon Dioxide 34 mmol/L (22-30); Chloride 100 mmol/L (98-107); Glucose 127 mg/dl (70-99); HDL Cholesterol 61 mg/dl; LDL Cholesterol, Calculated 55 mg/dl; Potassium 4.2 mmol/L (3.5-5.1); Sodium 142 mmol/L (135-145); Total Protein 7.6 g/dl (6.3-8.2); Very Low Density Lipoprotein 14 mg/dl (0-30); eGFR 48.25
[2025-05-29 12:57] LABS: Glycohemoglobin (HgbA1c) 7.6 % (4.0-5.6)
== END ==
LOC: HWLAB 08:38
PROVIDERS: ATTENDING PHYSICIAN Student in an Organized Health Care Education/Training Program; FAMILY PHYSICIAN Family Medicine
DX: Z98.890 Other specified postprocedural states (principal)
CPT/HCPCS: 36415; 80053; 80061; 83036; 85025

== ENCOUNTER → 2025-06-09 07:18 | Outpatient (REF) | payer MEDICARE, SELFPAY | LOC: HWRCS 07:18 | PROVIDERS: ATTENDING PHYSICIAN Student in an Organized Health Care Education/Training Program; FAMILY PHYSICIAN Family Medicine | DX: I35.0 Nonrheumatic aortic (valve) stenosis (principal); I25.5 Ischemic cardiomyopathy; I50.20 Unspecified systolic (congestive) heart failure | CPT/HCPCS: 93306 ==

== ENCOUNTER → 2025-06-19 08:19 | Outpatient (REF) | payer MEDICARE, SELFPAY ==
[2025-06-19 10:02] LABS: Blood Urea Nitrogen 44 mg/dl (9-20); Calcium 9.6 mg/dl (8.4-10.2); Carbon Dioxide 32 mmol/L (22-30); Chloride 99 mmol/L (98-107); Glucose 104 mg/dl (70-99); Potassium 4.4 mmol/L (3.5-5.1); Sodium 135 mmol/L (135-145); eGFR 38.77
== END ==
LOC: HWLAB 08:19
PROVIDERS: ATTENDING PHYSICIAN Nurse Practitioner Gerontology; FAMILY PHYSICIAN Family Medicine
DX: I25.5 Ischemic cardiomyopathy (principal)
CPT/HCPCS: 36415; 80048

== ENCOUNTER 2025-06-25 13:05 | Observation (INO) | payer MEDICARE, SELFPAY ==
--- NOTE | 2025-06-25 12:52 | W.PN.CD ---
Today's Communication / Plan
-
Continue as noted above
Impression / Plan
-
74-year-old male with a history of coronary artery disease/coronary artery bypass grafting/previous coronary stents cardiomyopathy with ejection fraction 40%, persistent atrial fibrillation, pacemaker/[employer] whose had persistent atrial
fibrillation and has been consistently maintained on anticoagulation. Patient presented for electrical cardioversion today. We confirmed he was in atrial fibrillation. Patient underwent synchronized electrical cardioversion with 200 J. Following
cardioversion patient had period of asystole followed by some intermittent intrinsic beats recapture of pacing. Due to the delay in pacing following the cardioversion patient had further interrogation of the device with further review by the
[employer] rep and additional consultation with their technical support team. Pacemaker is currently functioning appropriately with no abnormalities. Suspected the event it is related to the shock itself and the technical support team confirmed
that this has been seen on occasion. Patient currently comfortable and without symptoms. Based on the above event and the fact that the patient's pacer dependent I have recommended that he is admitted for observation so that we can continue to
monitor his rhythms and be sure that his pacemaker is functioning appropriately. Of note the output of his device has been temporarily increased to increase safety margin
-Continue current medical therapy.
Physical Exam
Physical Exam
Constitutional: No acute distress
Cardiovascular: Rhythm & rate is regular and Systolic murmur present
Respiratory: Respiratory effort normal, Wheeze Absent and Rhonchi Absent
GI: Soft, Non tender and Normal bowel sounds
Neuro/Psych: Alert, Oriented and AO x 3
Data Reviewed
-
Date of Service: June 25, 2025
Medical Decision Making: Reviewed Test Results
Medical Tests (PFT, Pathology etc): Report Reviewed by me
Labs: Labs Reviewed by me
[2025-06-25 15:39] VITALS: BP 134/68
[2025-06-25 16:48] LABS: Glucose - Point of Care 153 mg/dl (70-99)
[2025-06-25 16:50] VITALS: BP 141/73
[2025-06-25] MEDS: LIPITOR 40 MG PO (17:10)
[2025-06-25 17:52] VITALS: BP 139/69
--- NOTE | 2025-06-25 18:37 | PTCARENOTE ---
1545 Pt arrived from wheelabrator operator on stretcher. Pt was able to ambulate into room. VSS. tele monitor in place. Oriented to room and call sweeney. Head to toe assessment complete. Bed locked and in lowest position.
[2025-06-25 18:48] VITALS: BP 140/73
[2025-06-25 19:28] VITALS: BP 138/68
[2025-06-25] MEDS: DIOVAN 20 MG PO (19:48)
[2025-06-25] MEDS: ELIQUIS 5 MG PO (19:49)
[2025-06-25 21:14] LABS: Glucose - Point of Care 127 mg/dl (70-99)
[2025-06-25] MEDS: ROXICODONE 10 MG PO (21:52)
[2025-06-25] MEDS: HYTRIN 10 MG PO (21:52)
[2025-06-25] MEDS: DESYREL 150 MG PO (21:53)
[2025-06-25] MEDS: TOPROL XL 50 MG PO (21:53)
[2025-06-25] MEDS: LANTUS 0.05 UNITS SC (21:54)
[2025-06-25 23:00] VITALS: BP 150/88
[2025-06-26 03:06] VITALS: BP 154/89
[2025-06-26] MEDS: SYNTHROID 75 MCG PO (05:45)
[2025-06-26 06:00] VITALS: BMI 22.9
[2025-06-26 08:00] VITALS: BP 158/78
[2025-06-26 08:05] LABS: Glucose - Point of Care 116 mg/dl (70-99)
[2025-06-26] MEDS: ELIQUIS 5 MG PO (10:04)
[2025-06-26] MEDS: VITAMIN D3 (cholecalciferol) 50 MCG PO (10:04)
[2025-06-26] MEDS: DELTASONE 5 MG PO (10:04)
[2025-06-26] MEDS: FARXIGA 10 MG PO (10:05)
[2025-06-26] MEDS: DIOVAN 20 MG PO (10:05)
--- NOTE | 2025-06-26 10:24 | W.PN.CD ---
Today's Communication / Plan
-
- Stable for discharge.
Impression / Plan
-
74-year-old male with a history of coronary artery disease/coronary artery bypass grafting/previous coronary stents cardiomyopathy with ejection fraction 40%, persistent atrial fibrillation, complete heart block pacemaker/[employer] whose had DC
cardioversion on 06/25/2025 with significant pacing inhibition post cardioversion.
Post cardioversion pause
- Persistent A-fib to normal sinus rhythm
- Now a paced rhythm.
- Significant postconversion pause noted. Pacemaker failed to pace post cardioversion. Case was discussed with [employer] in detail. Current hypothesis is the cardioversion overwhelm the pacemaker circuit.
- Pacemaker is working appropriately now. Both atrial and ventricular leads have normal threshold and impedances. Generator has normal battery life.
- [employer] is not recommending generator change at this time. Telemetry overnight were reviewed without any sign of pauses. Patient denies any syncope at home as well.
- After long discussion with [employer] representatives, it was decided to discharge patient home.
Persistent atrial fibrillation
- S/p DCCV
- On Eliquis 5 mg twice a day
Heart failure with moderately reduced ejection fraction
- HFmEF with LVEF of 40%
- Echo on 06/09/2020-LVEF 40%
- On Farxiga, Lasix, metoprolol, Entresto
Moderate aortic stenosis
- Moderate with mean gradient of 20 mmHg
Coronary artery disease
- Status post CABG
- History of coronary stenting.
Other medical problems
Diabetes mellitus
Sjogren syndrome
Hypothyroidism
Hyperlipidemia
Pernicious anemia
Physical Exam
Vital Signs/Labs
Vital Signs
Temp Pulse Resp BP Pulse Ox
97.7 F 66 18 158/78 99
06/26/25 08:00 06/26/25 08:00 06/26/25 08:00 06/26/25 08:00 06/26/25 08:00
06/25/25 06/26/25 06/27/25
06:59 06:59 06:59
Actual Weight 85.411 kg
06/25/25 19:28
06/25/25 19:28
Physical Exam
Constitutional: No acute distress and Comfortable
EENT: Anicteric and Moist mucous membranes
Cardiovascular: Rhythm & rate is regular, Pedal edema is absent, JVD pressure is normal and Systolic murmur present
Respiratory: Respiratory effort normal and Lungs clear to auscul.
GI: Soft, Non tender and Normal bowel sounds
Neuro/Psych: Alert, Oriented and AO x 3
Other: Cardiac Device Site
Data Reviewed
-
Date of Service: June 26, 2025
Medical Decision Making: Reviewed Test Results, Test Interpretation and Review of Case with other Provider
Labs: Labs Reviewed by me
Old Records: Reviewed
--- NOTE | 2025-06-26 10:57 | W.DS.TRANS ---
DC Summary - Medical Service Representative
-
Discharge Instructions:
Discharge Diagnosis/Procedures Atrial fibrillation s/p cardioversion. Monitored
overnight due to post-cardioversion pause and
pacing inhibition.
Diet 2 Gram Sodium,Restrict fluids to 48 oz,Low
Cholesterol,Low Fat
Activity As tolerated
Driving Restrictions No driving for 24 hours
Specialty Instructions Weigh Daily
Instructions:
Stand-Alone Forms:
Changes to Home Medications: No
Discharge Medications:
DC Medications w/original date entered in [employer]
atorvastatin 40 mg tablet 40 mg PO QPM High cholesterol 10/11/10
cyanocobalamin (vitamin B-12) 1,000 mcg/mL injection solution 1,000 mcg IM SA Supplement 10/11/10
prednisone 5 mg tablet 5 mg PO DAILY 09/09/22
dapagliflozin propanediol 10 mg tablet (Farxiga) 10 mg PO DAILY 11/07/24
insulin glargine 100 unit/mL (3 mL) subcutaneous pen (Lantus Solostar U-100 Insulin) 5 unit SC HS 11/07/24
levothyroxine 75 mcg tablet 75 mcg PO DAILY 11/07/24
terazosin 10 mg tablet 10 mg PO HS 11/07/24
trazodone 150 mg tablet 150 mg PO HS PRN sleep 11/07/24
apixaban 5 mg tablet (Eliquis) 5 mg PO BID 06/25/25
calcium carb-ergocalciferol (vit D2) 600 mg calcium-200 unit tablet 1 tab PO Q OTHER DAY 06/25/25
cholecalciferol (vitamin D3) 50 mcg (2,000 unit) tablet (Vitamin D3) 50 mcg PO DAILY 06/25/25
fluticasone propionate 50 mcg/actuation nasal spray,suspension 2 spray intranasal DAILY 06/25/25
furosemide 20 mg tablet 20 mg PO DAILY PRN swelling 06/25/25
magnesium 400 PO DAILY 06/25/25
metoprolol succinate 50 mg tablet,extended release 24 hr 50 mg PO DAILY 06/25/25
oxycodone 10 mg tablet,extended release,12 hr 10 mg PO PRN PRN back pain 06/25/25
relugolix 120 mg tablet (Orgovyx) 120 mg PO DAILY 06/25/25
valsartan 40 mg tablet 20 mg PO BID 06/25/25
Home Medication Changes
Pending Results: No
[2025-06-26 11:59] VITALS: BP 138/80
--- NOTE | 2025-06-26 12:16 | CM ---
Met with patient at bedside
Pharmacy verified: [facility] @ [address] [place] [address]
RODRIGUEZ explained; form signed @ [id number]
Lives w/ ; multilevel home
PLOF: independent with ambulation, stairs and ADLs; drives; retired
Plans to resume outpatient PT/OT
will transport home
NO SNF or Home Health utilization history
Plan: Discharge to home today; resumption of outpatient therapy
== END 2025-06-26 12:43 | disposition home or self-care (01) ==
LOC: 2 SOUTH 13:05
PROVIDERS: ADMITTING PHYSICIAN Internal Medicine Cardiovascular Disease; FAMILY PHYSICIAN Family Medicine
DX: I48.19 Other persistent atrial fibrillation (principal); I25.5 Ischemic cardiomyopathy; I25.10 Atherosclerotic heart disease of native coronary artery without angina pectoris; F17.200 Nicotine dependence, unspecified, uncomplicated; E03.9 Hypothyroidism, unspecified; Z79.899 Other long term (current) drug therapy; Z95.1 Presence of aortocoronary bypass graft; Z95.5 Presence of coronary angioplasty implant and graft; I50.22 Chronic systolic (congestive) heart failure; M35.00 Sjogren syndrome, unspecified; E11.9 Type 2 diabetes mellitus without complications; D51.0 Vitamin B12 deficiency anemia due to intrinsic factor deficiency; E78.5 Hyperlipidemia, unspecified; Z79.01 Long term (current) use of anticoagulants; I35.0 Nonrheumatic aortic (valve) stenosis; Z79.4 Long term (current) use of insulin; Z79.52 Long term (current) use of systemic steroids
CPT/HCPCS: 82962; 92960; 93005; G0378